=== PATIENT | female | born 1980 | race Two or more races ===

== ENCOUNTER 2018-02-11 05:58 | Emergency (ER) | payer SELFPAY ==
[~2018-02-11] VITALS: Ht 167.6 cm; Wt 79.8 kg
[2018-02-11 06:07] VITALS: Ht 167.6 cm; Wt 79.8 kg
[2018-02-11 06:38] VITALS: BP 118/65
== END 2018-02-11 06:38 | disposition home or self-care (01) ==
LOC: ED 05:58
DX: L03.116 Cellulitis of left lower limb (principal)
CPT/HCPCS: J1885